=== PATIENT | male | born 1995 | race African-American/Black ===

== ENCOUNTER 2023-05-03 18:36 | Emergency (ER) | payer OTHER ==
[~2023-05-03] VITALS: Ht 172.7 cm; Wt 100.0 kg
[2023-05-03] MEDS ORDERED: QUET25TA PO (18:47)
[2023-05-03] MEDS ORDERED: PRAZ5 PO (18:47)
[2023-05-03] MEDS ORDERED: ESCI-8 PO (18:47)
[2023-05-03] MEDS ORDERED: ACETAMINOPHEN 500 MG TABLET PO ONE (19:15)
[2023-05-03] MEDS ORDERED: PERTUSS(ACELL),DIPH,TET VAC/PF 0.5 ML SYRINGE IM. ONE (19:15)
[2023-05-03] MEDS ORDERED: BACITRACIN 0.9 GM PACKET OINTMENT TP ONE (19:15)
[2023-05-03 20:01] VITALS: BP 132/69; PULSE 72; RESP 18; TEMP 97.3
== END 2023-05-03 21:54 | disposition home or self-care (01) ==
LOC: EMS 18:40
DX: S00.82XA Blister (nonthermal) of other part of head, initial encounter (principal); S80.02XA Contusion of left knee, initial encounter; S80.212A Abrasion, left knee, initial encounter; J45.909 Unspecified asthma, uncomplicated; F32.A Depression, unspecified; F12.90 Cannabis use, unspecified, uncomplicated; Z91.018 Allergy to other foods; V89.2XXA Person injured in unspecified motor-vehicle accident, traffic, initial encounter; Y93.89 Activity, other specified; Y92.89 Other specified places as the place of occurrence of the external cause; Y99.8 Other external cause status
CPT/HCPCS: 70450; 72125; 90471; 90715; 99285